=== PATIENT | male | born 1975 | race Caucasian/White ===

== ENCOUNTER 2024-05-02 07:08 | Emergency (ER) | payer OTHER ==
[2024-05-02] MEDS ORDERED: AZITHROMYCIN 250 MG TAB ONE (07:29)
--- NOTE | 2024-05-02 07:29 | EDPHYS ---
Physician Documentation [facility] Name: Jack Ferreira Age: 48 yrs Sex: Male : 1975 Arrival Date: 05/02/2024 Time: 07:08 Bed 14 Private MD: ED Physician Omi Ramirez HPI: 05/02 07:26 This 48 yrs old Male presents to ER via Ambulatory with complaints of Fever - x5days, rn Sore Throat. 07:26 The patient reports fever, not measured (subjective). Onset: The symptoms/episode rn began/occurred 5 day(s) ago. Modifying factors: there are no obvious modifying factors. Severity of symptoms: At their worst the symptoms were moderate in the emergency department the symptoms are unchanged. The patient has not experienced similar symptoms in the past. Patient reports subjective fever with sore throat and cough for 5 days. Reports active smoker and has MS. Patient feels like symptoms are getting worse. No dyspnea.. Historical: - Allergies: 07:40 No Known Allergies; ll1 - PMHx: 07:40 MS; ll1 - PSHx: 07:40 None; ll1 - Immunization history:: Adult Immunizations up to date. - Infectious Disease History:: Denies. - Social history:: Smoking status: Patient reports the use of cigarette tobacco products, smokes one-half pack cigarettes per day. - Family history:: not pertinent. - Hospitalizations: : No recent hospitalization is reported. ROS: 07:26 Constitutional: Negative for fever, chills, and weight loss, Cardiovascular: Negative rn for chest pain, palpitations, and edema, Respiratory: Positive for cough Abdomen/GI: Negative for abdominal pain, nausea, vomiting, diarrhea, and constipation, MS/Extremity: Negative for injury and deformity, Neuro: Positive for generalized malaise Exam: 07:26 Constitutional: This is a well developed, well nourished patient who is awake, alert, rn and in no acute distress. Head/Face: Normocephalic, atraumatic. ENT: Clear nasal drainage, mild pharyngeal erythema. Nontender cervical lymphadenopathy. Cardiovascular: Regular rate and rhythm. No pulse deficits. Respiratory: Speaking full sentences, unlabored. No increased work of breathing, no retractions or nasal flaring. Vital Signs: 07:18 BP 121 / 74; Pulse 78; Resp 17; Temp 97.4; Pulse Ox 100% ; Weight 74.84 kg; Height 5 ll1 ft. 11 in. ; Pain 6/10; 07:41 Pulse 76; Resp 16; Pulse Ox 97% ; ll1 07:18 Body Mass Index 23.01 (74.84 kg, 180.34 cm) ll1 07:18 Pain Scale: Adult ll1 MDM: 07:15 Medical Screening Exam initiated rn 07:26 Differential diagnosis: viral Infection, bacterial infection, URI, bronchitis. Data rn reviewed: vital signs, nurses notes, and as a result, I will discharge patient. Counseling: I had a detailed discussion with the patient and/or guardian regarding the historical points, exam findings, and any diagnostic results supporting the discharge/admit diagnosis, the need for outpatient follow up, to return to the emergency department if symptoms worsen or persist or if there are any questions or concerns that arise at home. Special discussion: I discussed with the patient/guardian in detail that at this point there is no indication for admission to the hospital. It is understood, however, that if the symptoms persist or worsen the patient needs to return immediately for re-evaluation. Administered Medications: 07:35 Drug: AZITHromycin PO 500 mg PO once Route: PO; ll1 07:38 Follow up: Response: No adverse reaction ll1 Disposition Summary: 05/02/24 07:28 Discharge Ordered Notes: Location: Home rn Problem: new rn Symptoms: are unchanged rn Condition: Stable rn Diagnosis - Acute upper respiratory infection, unspecified rn Followup: rn - With: Private Physician - When: As needed - Reason: Recheck today's complaints, Re-evaluation by your physician Discharge Instructions: - Discharge Summary Sheet rn - Upper Respiratory Infection, Adult rn Forms: - Medication Reconciliation Form rn - Antibiotic pacu rn - Prescription Opioid Use rn - Patient Portal Instructions rn - Leadership Thank You Letter rn - Work release form ll1 Prescriptions: - Zithromax Z-Marcelo 250 mg Oral Tablet - take 1 tablet ORAL route as directed for 5 days Day 1 - take two (2) tablets rn one time. Day 2, 3, 4 , 5 take one (1) tablet once daily.; 6 tablet; Refills: 0, Product Selection Permitted Signatures: Omi Ramirez MD MD rn Lewis, Lynsay, RN RN [facility]
--- NOTE | 2024-05-02 07:29 | ER ---
Nurse's Notes [facility] Name: Jack Ferreira Age: 48 yrs Sex: Male : 1975 Arrival Date: 05/02/2024 Time: 07:08 Bed 14 Private MD: Diagnosis: Acute upper respiratory infection, unspecified Presentation: 05/02 07:18 Chief complaint: Patient states: Cough, congestion, fever, sore throat for 5 days. ll1 Coronavirus screen: Client denies travel out of the [place] in the last 14 days. congestion, cough unrelated to allergies, fatigue, fever, headache, sore throat, Client presents with at least one sign or symptom that may indicate coronavirus-19. Standard/surgical mask placed on the client. Ebola Screen: Patient denies travel to an Ebola-affected area in the 21 days before illness onset. Initial Sepsis Screen: Does the patient meet any 2 criteria? No. Patient's initial sepsis screen is negative. Does the patient have a suspected source of infection? No. Patient's initial sepsis screen is negative. Risk Assessment: Do you want to hurt yourself or someone else? Patient reports no desire to harm self or others. Onset of symptoms was April 27, 2024. 07:18 Method Of Arrival: Ambulatory ll1 07:18 Acuity: AYSHA 4 ll1 Triage Assessment: 07:19 General: Appears in no apparent distress. Behavior is calm, cooperative, appropriate ll1 for age. Pain: Complains of pain in head Quality of pain is described as aching. EENT: Reports nasal congestion pain when swallowing. Neuro: Reports headache. Respiratory: Reports cough that is. Historical: - Allergies: 07:40 No Known Allergies; ll1 - PMHx: 07:40 MS; ll1 - PSHx: 07:40 None; ll1 - Immunization history:: Adult Immunizations up to date. - Infectious Disease History:: Denies. - Social history:: Smoking status: Patient reports the use of cigarette tobacco products, smokes one-half pack cigarettes per day. - Family history:: not pertinent. - Hospitalizations: : No recent hospitalization is reported. Screenin:39 [facility] ED Fall Risk Assessment (Adult) History of falling in the last 3 months, ll1 including since admission No falls in past 3 months (0 pts) Confusion or Disorientation No (0 pts) Intoxicated or Sedated No (0 pts) Impaired Gait No (0 pts) Mobility Assist Device Used No (0 pt) Altered Elimination No (0 pt) Score/Fall Risk Level 0 - 2 = Low Risk Maintained a safe environment, Hourly rounding (assess needs \T\ fall precautionary measures) done. Abuse screen: Denies threats or abuse. Nutritional screening: No deficits noted. Tuberculosis screening: No symptoms or risk factors identified. Assessment: 07:39 Reassessment: No changes from previously documented assessment. Patient and/or family ll1 updated on plan of care and expected duration. Pain level reassessed. Patient is alert, oriented x 3, equal unlabored respirations, skin warm/dry/pink. 07:39 Respiratory: Airway is patent Respiratory effort is even, unlabored, Breath sounds are ll1 clear bilaterally. EENT: Nares with drainage noted. 07:40 EENT: Throat is reddened. ll1 Vital Signs: 07:18 BP 121 / 74; Pulse 78; Resp 17; Temp 97.4; Pulse Ox 100% ; Weight 74.84 kg; Height 5 ll1 ft. 11 in. ; Pain 6/10; 07:41 Pulse 76; Resp 16; Pulse Ox 97% ; ll1 07:18 Body Mass Index 23.01 (74.84 kg, 180.34 cm) ll1 07:18 Pain Scale: Adult ll1 ED Course: 07:12 Patient arrived in ED. ra3 07:14 Arm band placed on Patient placed in an exam room, on a stretcher. ll1 07:15 Omi Ramirez MD is Attending Physician. rn 07:18 Alvino Burns RN is Primary Nurse. ll1 07:19 Triage completed. ll1 07:39 No provider procedures requiring assistance completed. Patient did not have IV access ll1 during this emergency room visit. 07:40 Patient has correct armband on for positive identification. Provided Education on: ll1 finish all prescribed antibiotics. Administered Medications: 07:35 Drug: AZITHromycin PO 500 mg PO once Route: PO; ll1 07:38 Follow up: Response: No adverse reaction ll1 Medication: 07:40 VIS not applicable for this client. ll1 Outcome: 07:28 Discharge ordered by . rn 07:40 Discharged to home ambulatory, ll1 07:40 Condition: stable 07:40 Discharge instructions given to patient, Instructed on discharge instructions, follow up and referral plans. medication usage, Demonstrated understanding of instructions, follow-up care, medications, Prescriptions given X , 07:41 Patient left the ED. ll1 Signatures: Omi Ramirez MD MD rn Lewis, Lynsay, RN RN ll1 Fransisca Valladares ra3 Corrections: (The following items were deleted from the chart) 07:26 07:18 Pulse 78bpm; Resp 17bpm; Pulse Ox 100%; Pain 6/10, Adult; 1 1
[2024-05-02 07:55] VITALS: BP 121/74; TEMP 97.4
[2024-05-02 07:56] VITALS: O2SAT 97
== END 2024-05-02 07:41 | disposition home or self-care (01) ==
LOC: ER 07:08
DX: J06.9 Acute upper respiratory infection, unspecified (principal); F17.210 Nicotine dependence, cigarettes, uncomplicated
CPT/HCPCS: 99283